=== PATIENT | female | born 1985 | race Two or more races ===

== ENCOUNTER 2021-09-17 14:58 | Emergency (ER) | payer BC ==
[~2021-09-17] VITALS: Ht 157.5 cm; Wt 79.0 kg
[2021-09-17] MEDS ORDERED: ACETAMINOPHEN 650 MG/20.3 ML SOLUTION. PO ONE (17:30)
[2021-09-17] MEDS ORDERED: IV NORMAL SALINE 1000ML BAG 1,000 ML IV ONE (17:30)
[2021-09-17] MEDS ORDERED: DEXAMETHASONE SOD PHOS 20 MG/5 ML VIAL. IV ONE (17:30)
[2021-09-17] MEDS ORDERED: LIDOCAINE 2% VISCOUS 15 ML SOLUTION. SWSW ONE (17:30)
[2021-09-17 18:47] LABS: BASO % 0 % (0-3); EOS % 0 % (0-3); HEMATOCRIT 41.4 % (36.0-47.0); HEMOGLOBIN 14.2 g/dL (12.0-15.5); LYMPH # 1.1 x10^3/uL (1.0-4.8); LYMPH % 7 % (24-48); MEAN CORPUSCULAR HEMOGLOBIN 31 pg (25-35); MEAN CORPUSCULAR HGB CONC 34 g/dL (31-37); MEAN CORPUSCULAR VOLUME 89 fL (79-100); MONO # 0.8 x10^3/uL (0.0-1.1); MONO % 5 % (0-9); NEUT # 13.5 x10^3/uL (1.8-7.7); NEUT % 88 % (31-73); PLATELET COUNT 232 x10^3/uL (140-400); RED BLOOD COUNT 4.65 x10^6/uL (3.50-5.40); RED CELL DISTRIBUTION WIDTH 13.2 % (11.5-14.5); WHITE BLOOD COUNT 15.3 x10^3/uL (4.0-11.0)
[2021-09-17 18:58] LABS: CALCIUM 8.7 mg/dL (8.5-10.1); CREATININE 0.6 mg/dL (0.6-1.0); GFR 112.5; POTASSIUM 3.6 mmol/L (3.5-5.1)
[2021-09-17] MEDS ORDERED: IOHEXOL 300 MG/ML 100ML VIAL. IV ONE (19:00)
[2021-09-17 19:04] LABS: ALBUMIN 3.6 g/dL (3.4-5.0); ALBUMIN/GLOBULIN RATIO 0.8 (1.0-1.7); TOTAL BILIRUBIN 0.5 mg/dL (0.2-1.0); TOTAL PROTEIN 8.1 g/dL (6.4-8.2)
[2021-09-17 19:19] LABS: % ATYL 1 % (0-0); % BANDS 3 % (0-9); % EOS 1 % (0-5); % LYMPHS 9 % (24-48); % MONOS 5 % (0-10); % SEGS 81 % (35-66)
[2021-09-17 19:20] LABS: PLT ESTIMATE ADEQUATE (ADEQUATE)
--- NOTE | 2021-09-17 20:13 | PHYS DOC ---
Past Medical History Past Medical History: Asthma (AGNES MOHAMUD Jaswinder DOMESTIC TECHNICIAN) Past Surgical History: No Surgical History Additional Past Surgical Histo: left love surgery (AGNES MOHAMUD DOMESTIC TECHNICIAN) Smoking Status: Never Smoker Alcohol Use: Occasionally Drug Use: None (AGNES MOHAMUD DOMESTIC TECHNICIAN) General Adult EDM: Chief Complaint: SORE THROAT HPI: HPI: Patient is a 36 year old female who presents to the ED today complaining of a sore throat been going on for 3 days. Patient reports fever that began today. She states she is fully vaccinated against COVID-19. (AGNES MOHAMUD DOMESTIC TECHNICIAN) Review of Systems: Review of Systems: Constitutional: Reports fever Eyes: Denies change in visual acuity. [] HENT: Reports sore throat. Denies nasal congestion Respiratory: Denies cough or shortness of breath. [] Cardiovascular: Denies chest pain or edema. [] GI: Denies abdominal pain, nausea, vomiting, bloody stools or diarrhea. [] : Denies dysuria. [] Musculoskeletal: Denies back pain or joint pain. [] Integument: Denies rash. [] Neurologic: Denies headache, focal weakness or sensory changes. [] Psychiatric: Denies depression or anxiety. [] (AGNES MOHAMUD DOMESTIC TECHNICIAN) Heart Score: C/O Chest Pain: N/A Risk Factors: Risk Factors: DM, Current or recent (<one month) smoker, HTN, HLP, family history of CAD, obesity. Risk Scores: Score 0 - 3: 2.5% MACE over next 6 weeks - Discharge Home Score 4 - 6: 20.3% MACE over next 6 weeks - Admit for Clinical Observation Score 7 - 10: 72.7% MACE over next 6 weeks - Early Invasive Strategies (AGNES MOHAMUD Jaswinder DOMESTIC TECHNICIAN) Current Medications: Current Medications Medications (Trade) Dose Ordered Sig/[place] Start Time Stop Time Status Last Admin Dose Admin Acetaminophen (Tylenol) 650 mg 1X ONCE 09/17/21 17:30 09/17/21 17:34 DC 09/17/21 19:14 650 MG Dexamethasone Sodium Phosphate (Decadron) 10 mg 1X ONCE 09/17/21 17:30 09/17/21 17:34 DC 09/17/21 19:15 10 MG Iohexol (Omnipaque 300 Mg/ml) 75 ml 1X ONCE 09/17/21 19:00 09/17/21 19:04 DC Lidocaine HCl (Viscous Lidocaine) 15 ml 1X ONCE 09/17/21 17:30 09/17/21 17:34 DC 09/17/21 19:13 15 ML Sodium Chloride 1,000 ml @ 1,000 mls/hr 1X ONCE 09/17/21 17:30 09/17/21 18:29 DC 09/17/21 19:11 1,000 MLS/HR (AGNES MOHAMUD DOMESTIC TECHNICIAN) Allergies: Allergies: Allergies Coded Allergies Type Severity Reaction Last Updated Verified No Known Drug Allergies 10/01/14 No (AGNES MOHAMUD DOMESTIC TECHNICIAN) Physical Exam: PE: Constitutional: Well developed, well nourished, no acute distress, non-toxic appearance. [] HENT: Normocephalic, atraumatic, bilateral external ears normal, oropharynx moist, no oral exudates, nose normal. [] +3 tonsils, posterior pharynx with mild erythema and exudate. +2 anterior cervical adenopathy Eyes: PERRLA, EOMI, conjunctiva normal, no discharge. [] Neck: Normal range of motion, no tenderness, supple, no stridor. [] Cardiovascular:Heart rate regular rhythm, no murmur [] Lungs & Thorax: Bilateral breath sounds clear to auscultation [] Abdomen: Bowel sounds normal, soft, no tenderness, no masses, no pulsatile masses. [] Skin: Warm, dry, no erythema, no rash. [] Back: No tenderness, no CVA tenderness. [] Extremities: No tenderness, no cyanosis, no clubbing, ROM intact, no edema. [] Neurologic: Alert and oriented X 3, normal motor function, normal sensory function, no focal deficits noted. [] Psychologic: Affect normal, judgement normal, mood normal. [] (AGNES MOHAMUD DOMESTIC TECHNICIAN) Current Patient Data: Labs: Laboratory Tests Test 09/17/21 18:30 White Blood Count 15.3 x10^3/uL (4.0-11.0) H Red Blood Count 4.65 x10^6/uL (3.50-5.40) Hemoglobin 14.2 g/dL (12.0-15.5) Hematocrit 41.4 % (36.0-47.0) Mean Corpuscular Volume 89 fL (79-100) Mean Corpuscular Hemoglobin 31 pg (25-35) Mean Corpuscular Hemoglobin Concent 34 g/dL (31-37) Red Cell Distribution Width 13.2 % (11.5-14.5) Platelet Count 232 x10^3/uL (140-400) Neutrophils (%) (Auto) 88 % (31-73) H Lymphocytes (%) (Auto) 7 % (24-48) L Monocytes (%) (Auto) 5 % (0-9) Eosinophils (%) (Auto) 0 % (0-3) Basophils (%) (Auto) 0 % (0-3) Neutrophils # (Auto) 13.5 x10^3/uL (1.8-7.7) H Lymphocytes # (Auto) 1.1 x10^3/uL (1.0-4.8) Monocytes # (Auto) 0.8 x10^3/uL (0.0-1.1) Eosinophils # (Auto) 0.0 x10^3/uL (0.0-0.7) Basophils # (Auto) 0.0 x10^3/uL (0.0-0.2) Segmented Neutrophils % 81 % (35-66) H Band Neutrophils % 3 % (0-9) Lymphocytes % 9 % (24-48) L Atypical Lymphocytes % (Manual) 1 % (0-0) H Monocytes % 5 % (0-10) Eosinophils % 1 % (0-5) Platelet Estimate Adequate (ADEQUATE) Sodium Level 135 mmol/L (136-145) L Potassium Level 3.6 mmol/L (3.5-5.1) Chloride Level 99 mmol/L (98-107) Carbon Dioxide Level 26 mmol/L (21-32) Anion Gap 10 (6-14) Blood Urea Nitrogen 8 mg/dL (7-20) Creatinine 0.6 mg/dL (0.6-1.0) Estimated GFR (Cockcroft-Gault) 112.5 BUN/Creatinine Ratio 13 (6-20) Glucose Level 112 mg/dL (70-99) H Lactic Acid Level 2.0 mmol/L (0.4-2.0) Calcium Level 8.7 mg/dL (8.5-10.1) Total Bilirubin 0.5 mg/dL (0.2-1.0) Aspartate Amino Transferase (AST) 12 U/L (15-37) L Alanine Aminotransferase (ALT) 16 U/L (14-59) Alkaline Phosphatase 128 U/L (46-116) H Total Protein 8.1 g/dL (6.4-8.2) Albumin 3.6 g/dL (3.4-5.0) Albumin/Globulin Ratio 0.8 (1.0-1.7) L Laboratory Tests 09/17/21 18:30 Laboratory Tests 09/17/21 18:30 Vital Signs: Vital Signs Date Time Temp Pulse Resp B/P (MAP) Pulse Ox O2 Delivery O2 Flow Rate FiO2 09/17/21 16:45 99.5 132 20 131/81 (98) 97 Room Air 99.5 (AGNES MOHAMUD DOMESTIC TECHNICIAN) EKG: EKG: [] (AGNES MOHAMUD DOMESTIC TECHNICIAN) Radiology/Procedures: Radiology/Procedures: []PROCEDURE: CT SOFT TISSUE NECK W/CONTRAST Exam: CT neck with contrast INDICATION: Sore throat TECHNIQUE: Sequential axial images through the neck obtained following the administration of 75 mL of Omni 300 IV contrast. Sagittal and coronal reformatted images were reconstructed from the axial data and reviewed. Exposure: One or more of the following in the visualized dose reduction techniques were utilized for this examination: 1. Automated exposure control 2. Adjustment of the MA and/or KV according to patient size 3. Use of iterative of reconstructive technique Comparisons: None FINDINGS: Visualized intracranial structures are unremarkable. Globes and orbital contents are normal. Visualized portions of paranasal sinuses and mastoid air cells are well-pneumatized. There is enlargement of the bilateral palatine tonsils greater on the left with mild adjacent peritonsillar edema. Otherwise, nasopharynx, oropharynx, hypopharynx and larynx are unremarkable. No focal fluid collection is identified. Thyroid and salivary glands are within normal limits. Numerous prominent mildly enlarged bilateral cervical lymph nodes are noted. No suspicious osseous lesions or acute fractures. Visualized lung apices are clear. IMPRESSION: Enlargement of the palatine tonsils bilaterally greater on the left with adjacent peritonsillar edema. No focal fluid collection to suggest abscess. Electronically signed by: Anirudh Harris MD (09/17/2021 9:43 PM) [facility] DICTATED and SIGNED BY: ANIRUDH HARRIS MD DATE: 09/17/21 [id number] (AGNES MOHAMUD APRN) Course & Med Decision Making: Course & Med Decision Making Pertinent Labs and Imaging studies reviewed. (See chart for details) This is a 36-year-old female patient presenting to the ED today with sore throat and fever. Temperature in the ED is 99.5 with a heart rate in the 130s. Blood pressure 131/81. CBC with a WBC of 15.3, CMP with no acute findings, lactic is normal. CT of the neck soft tissues noted for Enlargement of the palatine tonsils bilaterally greater on the left with adjacent peritonsillar edema. No focal fluid collection to suggest abscess. Patient was given Rocephin IV in the ED. Also given IV fluids Decadron, Tylenol and lidocaine viscous, feeling better Airways open, tolerating saturations. Discharged on amoxicillin. Provided ENT for follow-up. Provided return precautions. (AGNES MOHAMUD APRN) Dragon Disclaimer: Dragon Disclaimer: This electronic medical record was generated, in whole or in part, using a voice recognition dictation system. (AGNES MOHAMUD APRN) Departure Departure Impression: Primary Impression: Acute tonsillitis Qualified Codes: J03.90 - Acute tonsillitis, unspecified Additional Impressions: Fever Qualified Codes: R50.9 - Fever, unspecified Tachycardia Disposition: HOME / SELF CARE / HOMELESS Condition: STABLE Referrals: JOCELIN MARCELO (PCP) Follow-up in 1 week JAM CARTER MD Follow-up in 1 week Patient Instructions: Fever, Adult, [id number], Tonsillitis Additional Instructions: You have tonsillitis. We put you on antibiotics, ensure you complete them. Take Tylenol or Motrin for pain or fever. Take the prescribed prednisone until completed. Follow-up with the provided ENT or your own primary care doctor in 1 week. Come back to the ED at any point symptoms worsen Scripts Prednisone (PREDNISONE) 50 Mg Tablet 1 TAB PO DAILY, #5 TAB Prov: AGNES MOHAMUD APRN 09/17/21 Amoxicillin (AMOXICILLIN) 875 Mg Tablet 1 TAB PO BID, #20 TAB Prov: AGNES MOHAMUD APRN 09/17/21 Attending Signature Attending Signature I have reviewed the PA[employer]'s note and plan of care. I was available for consultation as needed during the patient's visit in the emergency department. I agree with the clinical impression, plan, and disposition. (RICKIE ISIDRO DO) AGNES MOHAMUD DOMESTIC TECHNICIAN Sep 17, 2021 20:13 RICKIE ISIDRO DO Sep 18, 2021 00:34
--- NOTE | 2021-09-17 21:45 | RAD ---
Exam: CT neck with contrast INDICATION: Sore throat TECHNIQUE: Sequential axial images through the neck obtained following the administration of 75 mL of Omni 300 IV contrast. Sagittal and coronal reformatted images were reconstructed from the axial data and reviewed. Exposure: One or more of the following in the visualized dose reduction techniques were utilized for this examination: 1. Automated exposure control 2. Adjustment of the MA and/or KV according to patient size 3. Use of iterative of reconstructive technique Comparisons: None FINDINGS: Visualized intracranial structures are unremarkable. Globes and orbital contents are normal. Visualiz ed portions of paranasal sinuses and mastoid air cells are well-pneumatized. There is enlargement of the bilateral palatine tonsils greater on the left with mild adjacent periton sillar edema. Otherwise, nasopharynx, oropharynx, hypopharynx and larynx are unremarkable. No focal f luid collection is identified. Thyroid and salivary glands are within normal limits. Numerous prominent mildly enlarged bilateral cervical lymph nodes are noted. No suspicious osseous lesions or acute fractures. Visualized lung apices are clear. IMPRESSION: Enlargement of the palatine tonsils bilaterally greater on the left with adjacent peritonsillar edema . No focal fluid collection to suggest abscess. Electronically signed by: Anirudh Oneill MD (09/17/2021 9:43 PM) [facility]
[2021-09-17] MEDS ORDERED: PRED50TA PO (21:59)
[2021-09-17] MEDS ORDERED: AMOX875T PO (21:59)
[2021-09-17 22:16] VITALS: BP 104/55
[2021-09-17] MEDS ORDERED: cefTRIAXone IV Push 1 GM VIAL. IVP ONE (22:30)
== END 2021-09-17 22:51 | disposition home or self-care (01) ==
LOC: ER 14:58
DX: J03.90 Acute tonsillitis, unspecified (principal); R00.0 Tachycardia, unspecified
CPT/HCPCS: 36415; 70491; 80053; 81025; 83605; 84145; 85007; 85025; 87040; 87070; 87147; 87880; 96361; 96374; 96375; 99285; J0696; J1100; J7030; Q9967